=== PATIENT | male | born 1955 | race Caucasian/White ===

== ENCOUNTER 2019-08-09 14:15 | Emergency (ER) | payer OTHER, SELFPAY ==
[2019-08-09 14:24] VITALS: BP 153/99; PULSE 93; RESP 18; TEMP 37.1; O2SAT 96; BMI 33.5
[2019-08-09 14:36] VITALS: BP 131/87; PULSE 92; RESP 14; TEMP 36.8; O2SAT 97
--- NOTE | 2019-08-09 14:42 | CT_ITS ---
WS: [id number] CT scan of the abdomen and pelvis without Oral and IV contrast. Additional two-dimensional coronal an d sagittal reconstruction was performed. 08/09/2019 Clinical Data: R flank Comparison: None. DLP: 1980.[address] scans at [facility] use at least one of these dose optimization techniques: automat ed exposure control; mA and/or kV adjustment per patient size (includes targeted exams where dose is matched to clinical indication); or iterative reconstruction. Findings: The right kidney shows mild renal pelvic dilatation with perinephric stranding. There is proximal rig ht ureteral dilatation and on axial image 106 with 208 there is a 0.3 cm right ureteral calculus. Th e left kidney shows no cysts, masses, hydronephrosis or renal calculi. No left ureteral dilatation is seen. The lower lungs show no nodules, masses or effusions. There is a small pericardial effusion. The liver, gallbladder, spleen, adrenal glands and pancreas are normal. . The abdominal aorta is normal in size with minimal calcification in the wall. No appendicitis or diverticulitis is seen. No abscess, adenopathy, ascites, mass, obstruction or free air is seen. The bladder is unremarkable. No inguinal hernia is seen. There are radiopaque items in the prostate w hich may represent radiation seeds. The bones of the lower thorax, lumbar spine, pelvis, and hips show only minimal osteoarthritic change of the lumbar vertebral bodies.. CT/CT kidney stone 27301 Impression: 1. Proximal right ureteral calculus measuring 0.3 cm causing mild renal pelvic dilatation and minimal right renal perinephric stranding. 2. Negative for left renal calculi.
--- NOTE | 2019-08-09 14:43 | ED_ITS ---
HPI - Male Genitourinary General: Chief complaint: Urogenital-Male Stated complaint: POSS KIDNEY STONE Time Seen by Provider: 08/09/19 14:33 Source: patient and family Mode of arrival: ambulatory Limitations: no limitations History of Present Illness: HPI Narrative: Patient is a 64-year-old male who presents to ED today with complaints of right flank pain that began between 3 a nd 5 AM this morning; patient states he has a history of kidney stones and feels the pain is similar; he denies urinary symptoms; patient was hurting on the waiting room but states he is fairly asymptomatic at the moment; he has never required lithotripsy or any form of other management for the nephrolithiasis previously; denies abdominal pain, nausea, vomiting, changes in bowel movements; no fever/chills MD Complaint: other (R flank pain) Onset (ago): hour(s) Duration: intermittent Relieving factors: none Exacerbating factors: none Associated symptoms: Reports no associated symptoms; Deny dysuria, hematuria, nausea or vomiting Review of Systems Const: Denies: fever or chills GI: Denies: abdominal pain, nausea or vomiting : Reports: flank pain; Denies: difficulty urinating, painful urination, urinary frequency, urinary urgency, urinary hesitancy, blood in urine or testicular pain PFSH ED PFSH: Statuses (acute, chronic, etc) shown below reflect problem list status as previously entered and may not be historically accurate Social History Smoking and tobacco status: never smoked Physical Exam Const: COMMON NORMALS: no apparent distress, average body habitus, oriented x3, no limitations, healthy appearing, alert and well nourished GI: COMMON NORMALS: normal to inspection, nondistended, normoactive bowel sounds, soft to palpation, non-tender, no hepatosplenomegaly and no masses PALPATION: Yes soft and Yes no hepatosplenomegaly : OTHER: mild tenderness just below R CVA Neuro: COMMON NORMALS: oriented x3 SENSORIUM/ORIENTATION: Yes alert Course Vital Signs: Vital signs: Vital Signs Temperature 98.2 F 08/09/19 14:36 Pulse Rate 92 08/09/19 14:36 Respiratory Rate 14 08/09/19 15:55 Blood Pressure 131/87 08/09/19 14:36 Pulse Oximetry 97 08/09/19 14:36 MDM - Male MDM Narrative: Medical decision making narrative: pt will be given strainer, pain/nausea meds, flomax; he has urologist in [place] he feels comfortable following up with; UA/labs look good here; CT with 3mm stone in mid ureter w/ very mild dilatation/stranding; return to ED precautions given. Lab Data: Labs: Lab Results 08/09/19 08/09/19 08/09/19 Range/Units 14:48 14:48 15:15 WBC 8.3 (4.0-10.0) 10^3/ uL RBC 4.88 (4.1-5.3) 10^6/u L Hgb 15.2 (11.7-16.6) g/dL Hct 44.7 (42.0-52.0) % MCV 91.6 (80-94) fL MCH 31.1 (28.0-34.0) pg MCHC 34.0 (30.0-36.0) g/dL RDW 12.7 (12.1-15.1) % Plt Count 265 (130-400) 10^3/c mm MPV 10.5 H (7.4-10.4) fL Neut % (Auto) 81.0 % Lymph % (Auto) 10.4 % Lucas % (Auto) 7.6 % Eos % (Auto) 0.5 % Baso % (Auto) 0.1 % Neut # (Auto) 6.7 (1.8-7.7) 10^3/u L Lymph # (Auto) 0.9 (0.8-4.8) 10^3/u L Lucas # (Auto) 0.6 (0.2-0.9) 10^3/u L Eos # (Auto) 0.0 (0.0-0.8) 10^3/u L Baso # (Auto) 0.0 (0.0-0.1) 10^3/u L Nucleated RBC % (a uto) 0 % Nucleated RBCs # 0.0 /100WBC Sodium 137 (136-145) mmol/L Potassium 3.8 (3.5-5.1) mmol/L Chloride 100 (98-107) mmol/L Carbon Dioxide 25 (22-29) mmol/L Anion Gap 15.8 (5-19) BUN 22 (8-23) mg/dL Creatinine 1.0 (0.7-1.2) mg/dL GFR Calculation 75.5 L (90-130) mL/min Glucose 127 H (74-106) mg/dL Calcium 10.4 (8.5-10.5) mg/dL Total Bilirubin 0.3 (0.15-1.2) mg/dL AST 21 (0-40) U/L ALT 20 (0-41) U/L Alkaline Phosphata se 96 (40-130) IU/L Total Protein 9.2 H (6.6-8.7) g/dL Albumin 4.5 (3.5-5.2) g/dL Globulin 4.7 H (1.3-4.6) g/dL Urine Color Yellow (Yellow) Urine Appearance Clear (CLEAR) Urine pH 5 (5-7) Ur Specific Gravit y 1.020 (1.005-1.030) Urine Protein Neg (Negative) Urine Glucose (UA) Norm (Normal) Urine Ketones Negative (Negative) Urine Occult Blood 3+ H (Negative) Urine Nitrate Negative (Negative) Urine Bilirubin Neg (NEGATIVE) Urine Urobilinogen Norm (Negative) mg/dL Ur Leukocyte Ana ase Negative (Negative) Urine RBC 25-40 H (0-2) /hpf Urine WBC 0-4 H (0-5) /hpf Ur Squamous Epith Cells None (0-5) Urine Bacteria 1+ H (NONE) Urine Mucus Trace Imaging Data: CT renal: Radiologist's impression: [address] [address] [address] Scan Report Signed Patient: AVE CRENSHAW Unit #: [id number] : 1955 Age/Sex: 64 / M ADM Date: 08/09/19 Loc: ER Room/Bed: Attending Dr: Ordering Provider/Ordering MD: Aisha Laird Date of Service: 08/09/19 Procedure(s): CT kidney stone 10656 Accession Number(s): [id number] Report Number: [id number] WS: [id number] CT scan of the abdomen and pelvis without Oral and IV contrast. Additional two- dimensional coronal and sagittal reconstruction was performed. 08/09/2019 Clinical Data: R flank Comparison: None. DLP: 1980.[address] scans at [facility] use at least one of these dose optimization techniques: automated exposure control; mA and/or kV adjustment per patient size (includes targeted exams where dose is matched to clinical indication); or iterative reconstruction. Findings: The right kidney shows mild renal pelvic dilatation with perinephric stranding. There is proximal right ureteral dilatation and on axial image 106 with 208 there is a 0.3 cm right ureteral calculus. The left kidney shows no cysts, masses, hydronephrosis or renal calculi. No left ureteral dilatation is seen. The lower lungs show no nodules, masses or effusions. There is a small pericardial effusion. The liver, gallbladder, spleen, adrenal glands and pancreas are normal. . The abdominal aorta is normal in size with minimal calcification in the wall. No appendicitis or diverticulitis is seen. No abscess, adenopathy, ascites, mass, obstruction or free air is seen. The bladder is unremarkable. No inguinal hernia is seen. There are radiopaque items in the prostate which may represent radiation seeds. The bones of the lower thorax, lumbar spine, pelvis, and hips show only minimal osteoarthritic change of the lumbar vertebral bodies.. CT/CT kidney stone [id number] Impression: 1. Proximal right ureteral calculus measuring 0.3 cm causing mild renal pelvic dilatation and minimal right renal perinephric stranding. 2. Negative for left renal calculi. Dictated By: Ирина Irvin MD Signed By: Ирина Irvin MD Signed Date/Time: 08/09/19 1534 DD/ 1526 Discharge Plan Discharge Patient Disposition: Home, Self-Care Clinical Impression: Ureterolithiasis Condition: Stable Prescriptions: New hydrocodone-acetaminophen 5-325 mg tablet 1 tab PO Q6H PRN (Reason: pain) Qty: 14 RF: 0 Zofran 4 mg tablet 4 mg PO Q6H PRN (Reason: nausea and vomiting) Qty: 14 RF: 0 Flomax 0.4 mg capsule 0.4 mg PO DAILY Qty: 10 RF: 0 Discharge Orders: Discharge Order (Routine); Ordered 08/09/19 Ordered By: Aisha Laird Discharge Diet: Usual diet Discharge Activity: Increase activity as tolerated Discharge Date/Time: 08/09/19 16:37 Coding Level of Care Code ED Computer Graphic Artist for Chg Fwd Exam Problem Focused
[2019-08-09 14:57] LABS: Basophils % 0.1 %; Eosinophils % 0.5 %; Hematocrit 44.7 % (42.0-52.0); Hemoglobin 15.2 g/dL (11.7-16.6); Lymphocytes # 0.9 10^3/uL (0.8-4.8); Lymphocytes % 10.4 %; Mean Corpuscular Hemoglobin 31.1 pg (28.0-34.0); Mean Corpuscular Volume 91.6 fL (80-94); Mean Platelet Volume 10.5 fL (7.4-10.4); Monocytes # 0.6 10^3/uL (0.2-0.9); Monocytes % 7.6 %; Neutrophils # 6.7 10^3/uL (1.8-7.7); Nucleated Red Blood Cells % 0 %; Platelet Count 265 10^3/cmm (130-400); Red Blood Count 4.88 10^6/uL (4.1-5.3); Red Cell Distribution Width 12.7 % (12.1-15.1); White Blood Count 8.3 10^3/uL (4.0-10.0)
[2019-08-09] MEDS: sodium chloride 0.9% 1,000 ML 999 ML IV (15:05)
[2019-08-09 15:11] LABS: Alanine Aminotransferase 20 U/L (0-41); Albumin Level 4.5 g/dL (3.5-5.2); Alkaline Phosphatase 96 IU/L (40-130); Anion Gap 15.8 (5-19); Aspartate Amino Transferase 21 U/L (0-40); Blood Urea Nitrogen 22 mg/dL (8-23); Calcium 10.4 mg/dL (8.5-10.5); Carbon Dioxide 25 mmol/L (22-29); Chloride 100 mmol/L (98-107); Globulin 4.7 g/dL (1.3-4.6); Glomerular Filtration Rate 75.5 mL/min (90-130); Glucose 127 mg/dL (74-106); Potassium 3.8 mmol/L (3.5-5.1); Sodium 137 mmol/L (136-145); Total Bilirubin 0.3 mg/dL (0.15-1.2); Total Protein 9.2 g/dL (6.6-8.7)
[2019-08-09] MEDS: ketorolac 30 mg/mL INJ IVP (15:39)
[2019-08-09] MEDS: ondansetron 2 mg/ML SDV 2 mL 4 MG IVP (15:39)
[2019-08-09 15:55] VITALS: RESP 14
[2019-08-09] MEDS: morphine 4 mg/mL SDV 1 mL IVP (15:55)
[2019-08-09 15:57] LABS: Urine Appearance Clear (CLEAR); Urine Color Yellow (Yellow); pH Urine 5 (5-7)
[2019-08-09 15:58] LABS: Add Urine Culture? Yes; Bacteria Urine 1+; Bilirubin Urine Neg (NEGATIVE); Blood Urine 3+ (Negative); Glucose Urine UA Norm (Normal); Ketones Urine Negative (Negative); Leukocyte Esterase Urine Negative (Negative); Mucus Urine TRACE; Nitrate Urine Negative (Negative); Protein Urine Neg (Negative); RBC Urine 25-40 /hpf (0-2); Urobilinogen Urine Norm (Negative); WBC Urine 0-4 /hpf (0-5)
[2019-08-09 16:35] VITALS: BP 130/90; PULSE 96; RESP 14; TEMP 37; O2SAT 97
== END 2019-08-09 16:37 | disposition home or self-care (01) ==
PROVIDERS: Emergency Medicine; Emergency Provider Physician Assistant
DX: N20.1 Calculus of ureter (principal)
CPT/HCPCS: 74176; 80053; 81001; 85025; 87086; 96360; 96374; 96375; 99282; 99284; J1885; J2270; J2405; J7030

== ENCOUNTER → 2020-12-10 08:27 | Outpatient (BNVA) | payer OTHER, SELFPAY | PROVIDERS: Visit Provider Nurse Practitioner Family | DX: Z20.822 Contact with and (suspected) exposure to COVID-19 (principal) | CPT/HCPCS: 87635 ==

== ENCOUNTER 2022-11-08 20:00 | Outpatient (CLI) | payer OTHER, SELFPAY | END 2022-11-08 20:01 | disposition home or self-care (01) | LOC: SLEEP 11-09 04:55 | PROVIDERS: Visit Provider Family Medicine | DX: R53.83 Other fatigue (principal); G47.33 Obstructive sleep apnea (adult) (pediatric) | CPT/HCPCS: 95810 ==

== ENCOUNTER 2023-02-06 20:00 | Outpatient (CLI) | payer OTHER, SELFPAY | END 2023-02-06 20:01 | disposition home or self-care (01) | LOC: SLEEP 02-07 04:01 | PROVIDERS: Visit Provider Family Medicine | DX: G47.33 Obstructive sleep apnea (adult) (pediatric) (principal) | CPT/HCPCS: 95811 ==